=== PATIENT | female | born 1965 | race Caucasian/White ===

== ENCOUNTER 2019-01-07 20:25 | Emergency (ER) | payer MEDICAID, OTHER ==
[~2019-01-07] VITALS: Ht 162.6 cm; Wt 63.2 kg
[~2019-01-07 20:25] MED LIST: FLUO20CA39 PO; HYDR-4383 PO; LAMO100T2 PO; LAMO200T2 PO; LORA0.5T PO; ONDA4TAB12 PO
[2019-01-07 20:46] VITALS: BP 117/71
[2019-01-07] MEDS ORDERED: PRED20TA PO (21:05)
[2019-01-07] MEDS ORDERED: dexamethasone sod phosphate 10mg/ml inj PO STA (21:05)
== END 2019-01-07 21:17 | disposition home or self-care (01) ==
LOC: ER 20:25
DX: L25.9 Unspecified contact dermatitis, unspecified cause (principal); G43.909 Migraine, unspecified, not intractable, without status migrainosus; K21.9 Gastro-esophageal reflux disease without esophagitis; F41.9 Anxiety disorder, unspecified; F32.9 Major depressive disorder, single episode, unspecified; F17.210 Nicotine dependence, cigarettes, uncomplicated; Z86.14 Personal history of Methicillin resistant Staphylococcus aureus infection; Z56.0 Unemployment, unspecified; Z88.6 Allergy status to analgesic agent; Z79.899 Other long term (current) drug therapy
CPT/HCPCS: 99283; J1100

== ENCOUNTER 2020-11-17 15:14 | Emergency (ER) | payer BC ==
[~2020-11-17] VITALS: Ht 162.6 cm; Wt 56.8 kg
[2020-11-17 15:19] VITALS: BP 135/76
== END 2020-11-17 17:46 | disposition home or self-care (01) ==
LOC: ER 15:14
DX: S63.91XA Sprain of unspecified part of right wrist and hand, initial encounter (principal); G43.909 Migraine, unspecified, not intractable, without status migrainosus; K21.9 Gastro-esophageal reflux disease without esophagitis; Z86.14 Personal history of Methicillin resistant Staphylococcus aureus infection; Z98.890 Other specified postprocedural states; Z88.6 Allergy status to analgesic agent; Z79.899 Other long term (current) drug therapy; Z56.0 Unemployment, unspecified; W23.1XXA Caught, crushed, jammed, or pinched between stationary objects, initial encounter; Y93.89 Activity, other specified; Y92.89 Other specified places as the place of occurrence of the external cause; Y99.8 Other external cause status
CPT/HCPCS: 73110; 73130; 99284

== ENCOUNTER 2022-01-29 15:56 | Emergency (ER) | payer BC ==
[~2022-01-29] VITALS: Ht 162.6 cm; Wt 48.6 kg
[2022-01-29 17:15] LABS: BASOPHILS # (AUTO) 0.1 X10'3 (0-0.2); BASOPHILS % (AUTO) 1.1 % (0-1); EOSINOPHILS # (AUTO) 0.4 X10'3 (0-0.9); EOSINOPHILS % (AUTO) 4.5 % (0-6); HEMATOCRIT 42.3 % (35.0-45.0); HEMOGLOBIN 14.6 g/dl (12.0-16.0); LYMPHOCYTES % (AUTO) 38.1 % (21-51); MEAN CORPUSCULAR HEMOGLOBIN 33.4 PG (27.0-31.0); MEAN CORPUSCULAR HGB CONC 34.5 g/dL (33.0-36.5); MEAN CORPUSCULAR VOLUME 96.8 FL (78-98); MEAN PLATELET VOLUME 7.5 FL (7.4-10.4); MONOCYTES # (AUTO) 0.6 X10'3 (0-0.9); MONOCYTES % (AUTO) 7.1 % (2-12); NEUTROPHILS # (AUTO) 3.8 X10'3 (1.8-7.7); NEUTROPHILS % (AUTO) 49.2 % (42-75); PLATELET COUNT 289 X10'3 (140-440); RED BLOOD COUNT 4.37 X10'6 (4.20-5.60); RED CELL DISTRIBUTION WIDTH 12.9 % (11.5-14.5); WHITE BLOOD COUNT 7.7 X10'3 (4.5-11.0)
[2022-01-29 17:25] LABS: ALANINE AMINOTRANSFERASE 30 U/L (12-78); ALBUMIN 4.5 G/DL (3.4-5.0); ALBUMIN/GLOBULIN RATIO 1.4 (1.1-1.5); ALKALINE PHOSPHATASE 109 IU/L (46-116); ANION GAP 10 (8-16); ASPARTATE AMINO TRANSFERASE 22 U/L (10-37); BILIRUBIN,TOTAL 0.4 MG/DL (0.1-1.0); BLOOD UREA NITROGEN 15 MG/DL (7-18); BUN/CREATININE RATIO 21.1 (6.6-38.0); CALCIUM 9.1 MG/DL (8.5-10.1); CHLORIDE 101 MMOL/L (99-107); CREATININE 0.71 MG/DL (0.40-0.90); GLUCOSE 117 MG/DL (70-104); POTASSIUM 3.5 MMOL/L (3.5-5.1); SODIUM 139 MMOL/L (135-145); TOTAL CARBON DIOXIDE 28.4 MMOL/L (24-32); TOTAL PROTEIN 7.7 G/DL (6.4-8.2); eGFR 85 ML/MIN
[2022-01-29] MEDS ORDERED: CYCL-1 PO (19:21)
[2022-01-29] MEDS ORDERED: MULT-1249 (19:21)
[2022-01-29] MEDS ORDERED: famotidine 20mg tablet PO ONE (22:55)
[2022-01-29] MEDS ORDERED: pantoprazole 40mg Tablet.DR PO ONE (22:55)
[2022-01-29] MEDS ORDERED: mag hydrox/Alum hydrox/simeth 30ml oral suspension PO ONE (22:55)
[2022-01-29] MEDS ORDERED: ondansetron 4mg rapidly disintigrating tab PO ONE (22:55)
[2022-01-29] MEDS ORDERED: ONDA8TAB13 PO (23:53)
[2022-01-29] MEDS ORDERED: PANT20TA18 PO (23:53)
[2022-01-30 00:08] VITALS: BP 126/76
== END 2022-01-30 00:10 | disposition home or self-care (01) ==
LOC: ER 15:57
DX: R55 Syncope and collapse (principal); R42 Dizziness and giddiness; R11.0 Nausea; R53.1 Weakness; G43.909 Migraine, unspecified, not intractable, without status migrainosus; K21.9 Gastro-esophageal reflux disease without esophagitis; F41.9 Anxiety disorder, unspecified; F32.A Depression, unspecified; F17.200 Nicotine dependence, unspecified, uncomplicated; Z86.14 Personal history of Methicillin resistant Staphylococcus aureus infection; Z98.890 Other specified postprocedural states; Z56.0 Unemployment, unspecified; Z88.6 Allergy status to analgesic agent; Z79.899 Other long term (current) drug therapy
CPT/HCPCS: 36415; 71045; 80053; 83880; 84484; 85025; 93005; 99285

== ENCOUNTER 2022-02-21 07:17 | Day surgery (SDC) | payer BC ==
[~2022-02-21] VITALS: Ht 162.6 cm; Wt 48.6 kg
[~2022-02-21 07:17] MED LIST changes: +CYCL-1 PO; -FLUO20CA39 PO; -HYDR-4383 PO; -LAMO100T2 PO; -LAMO200T2 PO; -LORA0.5T PO; +MULT-1249; -ONDA4TAB12 PO; +ONDA8TAB13 PO; +PANT20TA18 PO
[2022-02-21 07:26] VITALS: BP 128/72
[2022-02-21] MEDS ORDERED: TUMERIC (07:49)
[2022-02-21] MEDS ORDERED: LIDOcaine Viscous 15ml cup ONE (07:50)
[2022-02-21] MEDS ORDERED: FENTANYL CITRATE/PF 50 MCG/1 ML VIAL ONE (07:50)
[2022-02-21] MEDS ORDERED: MIDAZolam 1 MG/ML 5ML VIAL ONE (07:50)
[2022-02-21] MEDS ORDERED: PANT-47 PO (07:52)
[2022-02-21] MEDS ORDERED: diphenhydrAMINE 50 mg/ml inj ONE (08:44)
[2022-02-21 09:16] VITALS: BP 119/72
[2022-02-21 09:26] VITALS: BP 119/70
[2022-02-21 09:36] VITALS: BP 135/79
[2022-02-21 09:46] VITALS: BP 136/76
== END 2022-02-21 10:12 | disposition home or self-care (01) ==
LOC: GI LAB 07:17
PROVIDERS: ATTEND Internal Medicine Gastroenterology
DX: K29.50 Unspecified chronic gastritis without bleeding (principal); K44.9 Diaphragmatic hernia without obstruction or gangrene
CPT/HCPCS: 43239; J2250; J3010; J7030; Z7512; 99152; A4620; J1200

== ENCOUNTER 2023-08-09 15:03 | Emergency (ER) | payer BC ==
[~2023-08-09] VITALS: Ht 162.6 cm; Wt 51.9 kg
[~2023-08-09 15:03] MED LIST changes: -ONDA8TAB13 PO; +PANT-47 PO; -PANT20TA18 PO; +TUMERIC
[2023-08-09 15:09] VITALS: TEMP 99.3
[2023-08-09] MEDS: proCHLORperazine 10 MG/2 ml inj IV ONE (15:35)
[2023-08-09] MEDS: dexamethasone 4mg/ml inj IV SCH (15:36)
[2023-08-09] MEDS: ketorolac tromethamine 15mg/ml inj. IV ONE (15:36)
[2023-08-09] MEDS: diphenhydrAMINE 50 mg/ml inj IV ONE (15:37)
[2023-08-09] MEDS: normal saline 1000ML IV soln IVB ONE (15:39)
[2023-08-09] MEDS ORDERED: MAGNESIUM IV ONE (16:15)
[2023-08-09] MEDS ORDERED: NORMAL SALINE IV ONE (16:15)
[2023-08-09] MEDS: normal saline 1000ml 1,000 ML IV ONE (16:49)
[2023-08-09] MEDS: magnesium 1 gm/2ml inj. 1 GM in normal saline 50ml IV soln 50 ML IV ONE (16:49)
[2023-08-09] MEDS: morphine 2 MG/ML inj. syringe IV ONE (17:15)
[2023-08-09 18:07] VITALS: BP 117/68; PULSE 65; RESP 16; O2SAT 99
== END 2023-08-09 18:10 | disposition home or self-care (01) ==
LOC: ER 15:03
DX: G43.909 Migraine, unspecified, not intractable, without status migrainosus (principal); K21.9 Gastro-esophageal reflux disease without esophagitis; Z88.5 Allergy status to narcotic agent; Z79.899 Other long term (current) drug therapy
CPT/HCPCS: 96361; 96365; 96375; 99284; J0780; J1100; J1200; J1885; J2270; J3475; J3490; J7030

== ENCOUNTER 2024-07-26 20:55 | Emergency (ER) | payer BC, SELFPAY ==
[~2024-07-26] VITALS: Ht 162.6 cm; Wt 56.5 kg
[2024-07-26 21:04] VITALS: TEMP 99.3
[2024-07-26 21:28] LABS: BASOPHILS # (AUTO) 0.1 X10'3 (0-0.2); BASOPHILS % (AUTO) 0.8 % (0-1); EOSINOPHILS # (AUTO) 0.3 X10'3 (0-0.9); EOSINOPHILS % (AUTO) 4.2 % (0-6); HEMATOCRIT 42.5 % (35.0-45.0); HEMOGLOBIN 14.5 g/dl (12.0-16.0); LYMPHOCYTES # (AUTO) 2.9 X10'3 (1.1-4.8); LYMPHOCYTES % (AUTO) 37.1 % (21-51); MEAN CORPUSCULAR HEMOGLOBIN 32.1 PG (27.0-31.0); MEAN CORPUSCULAR VOLUME 94.3 FL (78-98); MEAN PLATELET VOLUME 7.4 FL (7.4-10.4); MONOCYTES # (AUTO) 0.6 X10'3 (0-0.9); MONOCYTES % (AUTO) 7.8 % (2-12); NEUTROPHILS % (AUTO) 50.1 % (42-75); PLATELET COUNT 334 X10'3 (140-440); RED BLOOD COUNT 4.51 X10'6 (4.20-5.60); RED CELL DISTRIBUTION WIDTH 13.3 % (11.5-14.5); WHITE BLOOD COUNT 7.9 X10'3 (4.5-11.0)
[2024-07-26 21:44] LABS: ALANINE AMINOTRANSFERASE 21 U/L (12-78); ALBUMIN/GLOBULIN RATIO 1.3 (1.1-1.5); ALKALINE PHOSPHATASE 126 IU/L (46-116); ANION GAP 8 (8-16); ASPARTATE AMINO TRANSFERASE 15 U/L (10-37); BILIRUBIN,TOTAL 0.2 MG/DL (0.1-1.0); BLOOD UREA NITROGEN 10 MG/DL (7-18); BUN/CREATININE RATIO 11.5 (10.0-20.0); CALCIUM 8.6 MG/DL (8.5-10.1); CHLORIDE 106 MMOL/L (99-107); CREATININE 0.87 MG/DL (0.40-0.90); GLUCOSE 118 MG/DL (70-104); LIPASE 42 U/L (16-77); POTASSIUM 3.5 MMOL/L (3.5-5.1); SODIUM 142 MMOL/L (135-145); eCRCL 61 ML/MIN; eGFR 67 ML/MIN
[2024-07-26 22:00] LABS: BILIRUBIN,URINE NEGATIVE (Neg); CLARITY,URINE CLEAR (Clear); COLOR,URINE YELLOW (Yellow); GLUCOSE, URINE NEGATIVE (Neg); KETONES,URINE NEGATIVE (Neg); LEUKOCYTE ESTERASE ,URINE NEGATIVE (Neg); NITRITES, URINE NEGATIVE (Neg); OCCULT BLOOD,URINE NEGATIVE (Neg); PROTEIN,URINE NEGATIVE (Neg); UROBILINOGEN,URINE 0.2 E.U/dL (0.2-1.0)
[2024-07-26 22:02] LABS: UA COLLECTION TYPE CLN CATCH MIDSTREAM
[2024-07-26 22:03] LABS: URINE HCG NEGATIVE (NEG)
--- NOTE | 2024-07-26 22:39 | Physician Documentation ---
History of Present Illness ~ Chief Complaint: Abdominal Pain Stated Complaint: ABD PAIN Time Seen by MD: 22:36 Primary Medical Doctor: DR KERR Mode of Arrival: POV HPI Patient presents to the emergency room with epigastric pain for which he has been working with her doctor for investigation. She states that her doctor had ordered an ultrasound however if symptoms worsened to come to the emergency room and this is why she is here. Pain is sharp and intermittent. Positive nausea. Regular bowel movements. No dysuria Medication Reconciliation Allergies: Coded Allergies: tramadol HCl (Verified Allergy, Intermediate, ITCHY RASH, 03/19/13) Scheduled Pantoprazole Sodium (PROTONIX tablet), 1 TAB PO DAILY, (Reported) [Tumeric], Unknown Dose DAILY, (Reported) Scheduled PRN Cyclobenzaprine* (Cyclobenzaprine*), 1 TAB PO PRN PRN for for anxiety/agitation, (Reported) Miscellaneous Medications Multivitamin (Multivitamin), (Reported) Past Medical History Past Medical History: Headache, Migraine, GERD, Hernia, MRSA Abscess, Anxiety, Depression Past Surgical History: abdominal surgery, orthopedic surgeries, other Patient History: No Family History of: (CABG) Coronary artery bypass grafting (CAD) Coronary arteriosclerosis (CHF) Congestive heart failure (COPD) Chronic obstructive lung disease (CVA) Cerebrovascular accident (Cancer) Malignant carcinoid tumor (BREAST CANCER) (DM Type 2) Diabetes mellitus type 2 (DM Type1) Diabetes mellitus type 1 (NV) Myocardial infarction (PVD) Peripheral vascular disease (TIA) Transient ischemic attack Alzheimer's disease Aortic aneurysm Asthma Cardiac arrest Hypercholesterolemia Alcohol Use: None Drug Use: none Lives with: Family Lives In: Home Occupation: unemployed Review of Systems ROS All review of systems negative except as per HPI Physical Exam Vital Signs: Temperature: 99.3, Source: Temporal, Heart Rate: 69, Respiratory Rate: 16, BP: 124/63, Pulse Oximetry: 99, Weight: 56.550 Oxygen Flow Rate: 0 Physical Exam General: Patient is awake, alert, oriented x4 in no acute distress and well appearing.~ Head: Normocephalic and atraumatic. Eyes: Conjunctival normal. EOMI. PERRL. ENT: Mucous membranes moist. Neck: Supple, trachea is midline. Chest: Clear to auscultation bilaterally without rales, rhonchi, or wheezes. There is no accessory muscle use or retractions. Cardiac: RRR without murmurs, gallops, or rubs. Abd: Soft, nondistended, epigastric tenderness to palpation without peritonitis Progress Results/Orders Results/Orders Orders - CHETAN SHINE MD Ct Abdomen Pelvis (07/26/24 23:15) Ultrasound Of Abdomen (07/27/24 00:00) Completed Orders - CHETAN SHINE MD Urinalysis, Cult If Indicated (07/26/24 21:03) Hcg, Ur Ql (07/26/24 21:03) Cbc/Diff (07/26/24 21:03) BMP (07/26/24 21:03) Lipase (07/26/24 21:03) CMP (07/26/24 21:03) Troponin (Single) (07/26/24 22:37) Procalcitonin (07/26/24 22:38) Ondansetron Disint. Tablet (Zofran Odt T (07/26/24 22:50) Mag & Alum Hydrox/Simeth Susp (Maalox Or (07/26/24 22:50) Lidocaine 2% Viscous (Xylocaine 2% Visco (07/26/24 22:50) Ct Abdomen Pelvis (07/26/24 23:15) Morphine 4mg/Ml Inj. (Morphine Inj.) (07/26/24 23:35) Famotidine/Pf Iv Inj (Pepcid Iv Inj) (07/26/24 23:35) Pantoprazole 40mg Iv (Protonix 40mg Iv) (07/26/24 23:35) Ultrasound Of Abdomen (07/27/24 00:00) Hydrocodone/Apap 5/325mg Tab ([place] 5/32 (07/27/24 01:30) Medications Received in ER Medications (Trade) Dose Ordered Sig/Christopher Route PRN Reason Start Time Stop Time Status Last Admin Dose Admin (Zofran ODT tablet) 8 mg ONCE ONCE PO 07/26/24 22:50 07/26/24 22:51 DC 07/26/24 22:56 8 MG (Maalox oral suspension) 30 ml ONCE ONCE PO 07/26/24 22:50 07/26/24 22:51 DC 07/26/24 22:57 30 ML (Xylocaine 2% Viscous 15mL cup) 15 ml ONCE ONCE MM 07/26/24 22:50 07/26/24 22:51 DC 07/26/24 22:57 15 ML (morphine inj.) 4 mg ONCE ONCE IV 07/26/24 23:35 07/26/24 23:36 DC 07/27/24 00:22 4 MG (Pepcid IV inj) 20 mg ONCE ONCE IV 07/26/24 23:35 07/26/24 23:36 DC 07/27/24 00:27 20 MG (Protonix 40mg IV) 40 mg ONCE ONCE IV 07/26/24 23:35 07/26/24 23:36 DC 07/27/24 00:27 40 MG ([place] 5/325mg tablet) 2 tab ONCE ONCE PO 07/27/24 01:30 07/27/24 01:36 DC 07/27/24 02:08 2 TAB Vital Signs 07/26/24 07/26/24 07/26/24 07/27/24 21:04 21:42 21:42 00:22 Temp 99.3 Pulse 77 69 Resp 16 16 16 B/P (MAP) 143/62 124/63 (83) Pulse Ox 100 99 O2 Flow Rate 0 07/27/24 07/27/24 07/27/24 00:59 02:07 02:08 Pulse 71 Resp 18 16 16 B/P (MAP) 129/68 (88) Pulse Ox 98 O2 Flow Rate 0 Laboratory Tests Test 07/26/24 21:10 07/26/24 21:18 Urine Specimen Description Cln catch midstream Urine Color Yellow Urine Clarity Clear Urine pH 6.0 Urine Specific Cool 1.010 Urine Protein Negative Urine Glucose (UA) Negative Urine Ketones Negative Urine Occult Blood Negative Urine Nitrite Negative Urine Bilirubin Negative Urine Urobilinogen 0.2 Urine Leukocyte Esterase Negative Urine Culture Indicated Not ind Volume Urine Centrifuged 10 ml Urine HCG, Qualitative Negative Urine Comment White Blood Count 7.9 Red Blood Count 4.51 Hemoglobin 14.5 Hematocrit 42.5 Mean Corpuscular Volume 94.3 Mean Corpuscular Hemoglobin 32.1 H Mean Corpuscular Hemoglobin Concent 34.0 Red Cell Distribution Width 13.3 Platelet Count 334 Mean Platelet Volume 7.4 Neutrophils (%) (Auto) 50.1 Lymphocytes (%) (Auto) 37.1 Monocytes (%) (Auto) 7.8 Eosinophils (%) (Auto) 4.2 Basophils (%) (Auto) 0.8 Neutrophils # (Auto) 4.0 Lymphocytes # (Auto) 2.9 Monocytes # (Auto) 0.6 Eosinophils # (Auto) 0.3 Basophils # (Auto) 0.1 CBC Comment Sodium Level 142 Potassium Level 3.5 Chloride Level 106 Carbon Dioxide Level 28.0 Anion Gap 8 Blood Urea Nitrogen 10 Creatinine 0.87 Estimated GFR/1.73 m2 67 BUN/Creatinine Ratio 11.5 Glucose Level 118 H Calcium Level 8.6 Total Bilirubin 0.2 Aspartate Amino Transf (AST/SGOT) 15 Alanine Aminotransferase (ALT/SGPT) 21 Alkaline Phosphatase 126 H Troponin I High Sensitivity 4 Total Protein 7.0 Albumin 4.0 Globulin 3.0 Albumin/Globulin Ratio 1.3 Lipase 42 Procalcitonin < 0.05 Chemistry Comments Medical Decision Making Findings Patient presented to the emergency room with epigastric pain as per HPI. Diff erentials include but are not limited to cholecystitis gastritis ulcer diverticulitis kidney stone therefore emergent labs and imaging indicated. Ultrasound is negative for findings as his CT scan. Negative response to GI cocktail. Unknown cause for patient's epigastric pain although patient did report increased pain just after GI cocktail administered. Possible ulcer and we will treat her with Protonix. I do not suspect intestinal ischemia. Labs reassuring Departure Disposition: HOME / SELF CARE / HOMELESS Impression: Primary Impression: Abdominal pain Condition: Stable Discharge Instructions: Abdominal Pain (Nonspecific) Additional Instructions: We will treat you for possible ulcer. Follow up with your doctor for further in vestigation. Your ultrasound and CT scans were negative today. Your labs were reassuring Referrals: NO PRIMARY CARE PROVIDER (PCP) Prescriptions Pantoprazole Sodium (PROTONIX tablet) 40 Mg Tablet.dr 1 TAB PO DAILY for 30 Days, #30 TAB 0 Refills Prov: CHETAN SHINE MD 07/27/24 Education Educated: Patient Educated regarding: diagnosis, treatment, need for follow up Signature Scribe Signature: No scribe Attestation: The note accurately reflects work and decisions made by me.Chetan Shine MD 07/27/24 02:19 CHETAN SHINE MD July 26, 2024 22:39
[2024-07-26] MEDS: ondansetron 4mg rapidly disintigrating tab PO ONE (22:56)
[2024-07-26] MEDS: LIDOcaine 2% Viscous 15ml cup MM ONE (22:57)
[2024-07-26] MEDS: mag hydrox/Alum hydrox/simeth 30ml oral suspension PO ONE (22:57)
[2024-07-27] MEDS: morphine 4 MG/ML inj SYRINge IV ONE (00:22)
[2024-07-27] MEDS: famotidine/PF 10 mg/ml inj IV ONE (00:27)
[2024-07-27] MEDS: pantoprazole 40 MG vial IV ONE (00:27)
--- NOTE | 2024-07-27 01:26 | RADIOLOGY REPORT ---
Clinical History abd pain Comparison CT ABD/PEL on 10/14/2016, 313 images. Technique: All CT scans at this medical facility are performed using dose modulation techniques as appropriate t o a performed exam including the following: Automated exposure control was utilized; adjustment of th e mA and/or kV according to patient size; and use of iterative reconstruction technique. All CT studies are reported to the Dose Index Registry of the [employer]. Without Contrast Radiation Dose: CTDI (mGy): 7.98; DLP (mGy-cm): 372.81 ELVI VALDES, [id number] COMPARISON: 10/23/16 FINDINGS: Lower chest: Minimum bibasilar linear atelectasis Liver: Unremarkable Gallbladder: Unremarkable Pancreas: Unremarkable Spleen: Unremarkable Adrenals:Unremarkable Kidneys: Unremarkable Stomach:Unremarkable Bowel:Evaluation of the bowel is limited and incomplete due to lack of oral contrast. The small and large bowel are grossly unremarkable. Normal appendix. Urinary bladder:Unremarkable Reproductive organs:No pelvic masses Peritoneum, retroperitoneum, lymphadenopathy:Unremarkable Vascular structures:Unremarkable Abdominal wall: Postsurgical changes related to right inguinal canal hernia repair with a mesh sling slides Musculoskeletal:No acute osseous abnormality IMPRESSION: No evidence of acute intra-abdominal abnormality This report was electronically signed by Abdoul Goode MD on 07/27/2024 1:23:43 AM.
--- NOTE | 2024-07-27 01:50 | RADIOLOGY REPORT ---
Clinical History epigastric pain Comparison ct a/p on 07/26/2024, 323 images. Without Contrast ELVI VALDES, [id number] Technique: Limited right upper abdominal quadrant ultrasound was performed. Interpretation of the ultrasound ex am is solely based on the sonographic images submitted by the on-site anesthesia associate. The radiologist w as not present on site and did not scan the patient to confirm findings. Findings: Liver: Unremarkable measuring 14 cm. Hepatopedal portal vein flow Gallbladder: Unremarkable CBD: 4.8 mm Pancreas: Obscured by bowel gas Right kidney: Unremarkable measuring 9 x 3.8 x 4.3 cm. No shadowing calculi. Mildly prominent renal pelvis. Impression: No evidence of hepatobiliary disease This report was electronically signed by Abdoul Goode MD on 07/27/2024 1:46:37 AM.
[2024-07-27] MEDS: HYDROcodone/acetaminophen 5mg/325mg tablet PO ONE (02:08)
[2024-07-27] MEDS ORDERED: PANT-47 PO (02:19)
[2024-07-27 02:36] VITALS: BP 129/67; PULSE 65; RESP 18; O2SAT 98
== END 2024-07-27 02:38 | disposition home or self-care (01) ==
LOC: ER 20:55
DX: R10.13 Epigastric pain (principal); G43.909 Migraine, unspecified, not intractable, without status migrainosus; F41.9 Anxiety disorder, unspecified; F32.A Depression, unspecified; K21.9 Gastro-esophageal reflux disease without esophagitis; Z98.890 Other specified postprocedural states
CPT/HCPCS: 36415; 74176; 76700; 80053; 81003; 81025; 83690; 84145; 84484; 85025; 96365; 96366; 96375; 99285; J2270; J2470; J3490

== ENCOUNTER 2024-09-05 14:32 | Emergency (ER) | payer BC ==
[~2024-09-05] VITALS: Ht 162.6 cm; Wt 56.0 kg
[2024-09-05 14:38] VITALS: TEMP 98.3
--- NOTE | 2024-09-05 14:38 | ELECTROCARDIOGRAPH REPORT ---
[facility] Test Date: 2024-09-05 Test Time: 14:36:08 Pat Name: ELVI VALDES Department: EMERGENCY ROOM Room: Gender: F Communications Analyst: SALVADOR : 1965 Requested By: TISHA TURPIN Order Number: [id number] Reading MD: Measurements Intervals [place] Rate: 73 P: 22 WV: 162 QRS: -52 QRSD: 100 T: 54 QT: 398 QTc: 439 Interpretive Statements Sinus rhythm Left axis deviation Probable anteroseptal infarct, old Please click the below link to view image of tracing.
[2024-09-05 14:54] LABS: BASOPHILS # (AUTO) 0.1 X10'3 (0-0.2); BASOPHILS % (AUTO) 1.2 % (0-1); EOSINOPHILS # (AUTO) 0.2 X10'3 (0-0.9); LYMPHOCYTES # (AUTO) 2.6 X10'3 (1.1-4.8); LYMPHOCYTES % (AUTO) 34.6 % (21-51); MEAN CORPUSCULAR HEMOGLOBIN 31.9 PG (27.0-31.0); MEAN CORPUSCULAR HGB CONC 34.1 g/dL (33.0-36.5); MEAN CORPUSCULAR VOLUME 93.4 FL (78-98); MEAN PLATELET VOLUME 7.2 FL (7.4-10.4); MONOCYTES # (AUTO) 0.5 X10'3 (0-0.9); MONOCYTES % (AUTO) 6.2 % (2-12); NEUTROPHILS # (AUTO) 4.1 X10'3 (1.8-7.7); PLATELET COUNT 289 X10'3 (140-440); RED BLOOD COUNT 4.39 X10'6 (4.20-5.60); RED CELL DISTRIBUTION WIDTH 14.2 % (11.5-14.5); WHITE BLOOD COUNT 7.5 X10'3 (4.5-11.0)
[2024-09-05 15:02] LABS: ALBUMIN 3.8 G/DL (3.4-5.0); ANION GAP 8 (8-16); BLOOD UREA NITROGEN 10 MG/DL (7-18); CALCIUM 8.5 MG/DL (8.5-10.1); CHLORIDE 104 MMOL/L (99-107); CREATININE 0.83 MG/DL (0.40-0.90); GLUCOSE 126 MG/DL (70-104); POTASSIUM 3.7 MMOL/L (3.5-5.1); SODIUM 139 MMOL/L (135-145); TOTAL CARBON DIOXIDE 27.4 MMOL/L (24-32); eCRCL 64 ML/MIN; eGFR 71 ML/MIN
--- NOTE | 2024-09-05 15:19 | Physician Documentation ---
History of Present Illness ~ Chief Complaint: Chest Pain Stated Complaint: CHEST PAIN Time Seen by MD: 14:53 Primary Medical Doctor: DR KERR Mode of Arrival: EMS HPI 58-year-old female presenting for chest pain that started about an hour half ago. She was sitting at her desk at work when it started. Pain is pressure- like and also sharp. It is in the left side and radiates to her left arm. States that her left arm did go slightly numb. Denies any nausea, vomiting, shortness of breath or any other associated symptoms. Medication Reconciliation Allergies: Coded Allergies: tramadol HCl (Verified Allergy, Intermediate, ITCHY RASH, 03/19/13) Scheduled Pantoprazole Sodium (PROTONIX tablet), 1 TAB PO DAILY, (Reported) Pantoprazole Sodium (PROTONIX tablet), 1 TAB PO DAILY [Tumeric], Unknown Dose DAILY, (Reported) Scheduled PRN Cyclobenzaprine* (Cyclobenzaprine*), 1 TAB PO PRN PRN for for anxiety/agitation, (Reported) Miscellaneous Medications Multivitamin (Multivitamin), (Reported) Past Medical History Past Medical History: Headache, Migraine, GERD, Hernia, MRSA Abscess, Anxiety, Depression Past Surgical History: abdominal surgery, orthopedic surgeries, other Patient History: No Family History of: (CABG) Coronary artery bypass grafting (CAD) Coronary arteriosclerosis (CHF) Congestive heart failure (COPD) Chronic obstructive lung disease (CVA) Cerebrovascular accident (Cancer) Malignant carcinoid tumor (BREAST CANCER) (DM Type 2) Diabetes mellitus type 2 (DM Type1) Diabetes mellitus type 1 (NV) Myocardial infarction (PVD) Peripheral vascular disease (TIA) Transient ischemic attack Alzheimer's disease Aortic aneurysm Asthma Cardiac arrest Hypercholesterolemia Alcohol Use: None Drug Use: none Lives with: Family Lives In: Home Occupation: unemployed Review of Systems All Other Systems at this time: Reviewed and Negative Physical Exam Vital Signs: Temperature: 98.3, Source: Oral, Heart Rate: 72, Respiratory Rate: 13, BP: 124/75, Pulse Oximetry: 98, Weight: 56.000 Oxygen Flow Rate: 0 Physical Exam I have reviewed the triage vitals. CONST: Well developed and well nourished. In no acute distress HENT: Head Atraumatic EYES: Pupils are equal, round and reactive to light. Normal conjunctiva NECK: Normal range of motion. Supple. CARDIO: Normal rate and regular rhythm. No murmurs, rubs, or gallops. S1, S2. PULM/CHEST: No respiratory distress. Lungs clear to auscultation. No wheeze ABD: Soft and nontender. Nondistended. Bowel sounds normal. No guarding. : Exam deferred MSK: No edema. No deformity. NEURO: Alert and oriented to person, place and time. Moving all extremities SKIN: Warm and dry. PSYCH: Normal mood and affect. Good eye contact. Progress Results/Orders Results/Orders Orders - TISHA TURPIN MD Chest,Single View (09/05/24 14:56) Monitor (09/05/24 14:36) Saline Lock (09/05/24 14:36) Oxygen (09/05/24 14:36) Hs Troponin I W Calculations (09/05/24 17:36) Completed Orders - TISHA TURPIN MD Chest,Single View (09/05/24 14:56) Cbc/Diff (09/05/24 14:36) BMP (09/05/24 14:36) Electrocardiogram (09/05/24 14:36) Hs Troponin I W Calculations (09/05/24 14:36) Hs Troponin I W Calculations (09/05/24 16:36) Vital Signs 09/05/24 09/05/24 09/05/24 09/05/24 14:38 14:46 14:50 17:01 Temp 98.3 Pulse 72 71 Resp 16 13 12 B/P (MAP) 124/75 120/64 (82) Pulse Ox 97 98 98 O2 Delivery Room Air* O2 Flow Rate 0 0 0 FiO2 N/A Laboratory Tests Test 09/05/24 14:42 09/05/24 16:54 White Blood Count 7.5 Red Blood Count 4.39 Hemoglobin 14.0 Hematocrit 41.0 Mean Corpuscular Volume 93.4 Mean Corpuscular Hemoglobin 31.9 H Mean Corpuscular Hemoglobin Concent 34.1 Red Cell Distribution Width 14.2 Platelet Count 289 Mean Platelet Volume 7.2 L Neutrophils (%) (Auto) 55.0 Lymphocytes (%) (Auto) 34.6 Monocytes (%) (Auto) 6.2 Eosinophils (%) (Auto) 3.0 Basophils (%) (Auto) 1.2 H Neutrophils # (Auto) 4.1 Lymphocytes # (Auto) 2.6 Monocytes # (Auto) 0.5 Eosinophils # (Auto) 0.2 Basophils # (Auto) 0.1 CBC Comment Sodium Level 139 Potassium Level 3.7 Chloride Level 104 Carbon Dioxide Level 27.4 Anion Gap 8 Blood Urea Nitrogen 10 Creatinine 0.83 Estimated GFR/1.73 m2 71 BUN/Creatinine Ratio 12.0 Glucose Level 126 H Calcium Level 8.5 Troponin I High Sensitivity < 4 L 5 Troponin I High Sens Percent Delta Troponin I Hi Sens Absolute Change Albumin 3.8 Chemistry Comments Departure Disposition: HOME / SELF CARE / HOMELESS Impression: Primary Impression: Chest wall pain Discharge Instructions: Chest Wall Pain Additional Instructions: Monitor symptoms for recurrence. Return to the ED immediately should they once again recur. Follow up closely with her primary care physician and Cardiology for outpatient cardiac evaluation. Referrals: NO PRIMARY CARE PROVIDER (PCP) TISHA TURPIN MD Sep 05, 2024 15:19
--- NOTE | 2024-09-05 15:21 | RADIOLOGY REPORT ---
CHEST RADIOGRAPH Indication: CP Technique: Single frontal view of the chest was obtained Comparison: CHEST,SINGLE VIEW on DOS: 01/29/22 FINDINGS: Lines and Tubes: None Lungs: No focal consolidation. Pleura: No effusion. No pneumothorax. Cardiomediastinal contours: Unremarkable Bones: No acute osseous abnormality. IMPRESSION: No acute cardiopulmonary disease.
[2024-09-05 17:59] VITALS: BP 120/64; PULSE 61; RESP 16; O2SAT 98
== END 2024-09-05 18:01 | disposition home or self-care (01) ==
LOC: ER 14:33
DX: R07.89 Other chest pain (principal); G43.909 Migraine, unspecified, not intractable, without status migrainosus; K21.9 Gastro-esophageal reflux disease without esophagitis; F32.A Depression, unspecified; F41.9 Anxiety disorder, unspecified
CPT/HCPCS: 36415; 71045; 80048; 84484; 85025; 93005; 99285